=== PATIENT | male | born 1985 | race Caucasian/White ===

== ENCOUNTER → 2018-02-07 | Outpatient (CLI) | payer OTHER ==
[~2018-02-07] MED LIST: ADDERALL 20 MG20 M1 PO; CYCLOBENZAPRINE; CYMBALTA60 MG PO; HYDROCODON-ACE1 EAC5 PO; LYRICA150 MG; NUVIGIL PO; OXYCODONE HCL15 MG PO; PERCOCET 5-3251 EACH PO; PREDNISONE 5 MG5 MG PO; RELAFEN750 MG; TRAMADOL 50 MG50 MG PO; VALIUM5 MG
== END ==
LOC: M.CT 13:30
DX: J32.0 Chronic maxillary sinusitis (principal); R51 Headache